=== PATIENT | female | born 1945 | race American Indian/Alaskan Native ===

== ENCOUNTER 2017-02-06 07:25 | Outpatient (CLI) | payer MEDICARE ==
--- NOTE | 2017-02-06 08:42 | Mammography Report ---
BILATERAL MAMMOGRAM: FINDINGS: The breasts are almost entirely fat (<25% glandular). No mass, distortion, suspicious calcification, or skin change is seen. There is no significant change when compared to our prior examination in December 2015. CAD was utilized. IMPRESSION: Negative mammogram. There is no mammographic evidence of malignancy. RECOMMENDATION: Follow-up per ACS guidelines. BI-RADS CATEGORY: 1 = Negative ACR BI-RADS MAMMOGRAPHIC CODES: 0 = Needs additional imaging evaluation; 1 = Negative; 2 = Benign; 3 = Probably benign; 4 = Suspicious; 5 = Malignant; 6 = Known biopsy-proven malignancy COMMENT: 1. Dense breast tissue, i.e., adenosis, fibrocystic changes, etc., may obscure an underlying neoplasm. 2. Approximately 10% of cancers are not detected with mammography. 3. A negative mammography report should not delay biopsy if a clinically suspicious mass is present. COMMENT: Patient follow-up letters are generated in [employer].
== END 2017-02-06 07:26 | disposition home or self-care (01) ==
LOC: MAMMO 07:25
DX: Z12.31 Encounter for screening mammogram for malignant neoplasm of breast (principal)
CPT/HCPCS: 77067; G0202

== ENCOUNTER 2018-06-16 08:18 | Outpatient (CLI) | payer MEDICARE ==
--- NOTE | 2018-06-16 15:33 | Mammography Report ---
BILATERAL DIGITAL SCREENING MAMMOGRAM with CAD: 06/16/18 08:18:00 CLINICAL: Routine screening. COMPARISON:02/06/17 FINDINGS: The breasts are almost entirely fatty. No mass, architectural distortion or suspicious calcifications. IMPRESSION: No mammographic evidence of malignancy. BI-RADS CATEGORY: 2 -- Benign RECOMMENDATION: Routine mammographic screening in one year. COMMENT: Patient follow-up letters are generated by our [employer] application.
== END 2018-06-16 08:19 | disposition home or self-care (01) ==
LOC: MAMMO 08:18
DX: Z12.31 Encounter for screening mammogram for malignant neoplasm of breast (principal)
CPT/HCPCS: 77067

== ENCOUNTER 2018-11-27 15:00 | Emergency (ER) | payer MEDICARE ==
--- NOTE | 2018-11-27 15:23 | Event Note ---
ED Screening Note Date of service: 11/27/18 Time: 15:18 ED Screening Note: 73 yo female presents with blood in urine x 5 days states she fell and hurt her back from a fall last week This initial assessment/diagnostic orders/clinical plan/treatment(s) is/are subject to change based on patients health status, clinical progression and re- assessment by fellow clinical providers in the ED. Further treatment and workup at subsequent clinical providers discretion. Patient/guardian urged not to elope from the ED as their condition may be serious if not clinically assessed and managed. Initial orders include: ua, cbc,
[2018-11-27 16:01] LABS: Basophils # (Auto) 0.1 K/mm3 (0.0-0.1); Basophils % (Auto) 1.2 % (0.0-1.8); Eosinophils # (Auto) 0.2 K/mm3 (0.0-0.4); Eosinophils % (Auto) 4.4 % (0.0-4.3); Hemoglobin 13.8 gm/dl (10.1-14.3); Lymphocytes # (Auto) 1.7 K/mm3 (1.2-5.4); Lymphocytes % (Auto) 31.9 % (13.4-35.0); Mean Corpuscular HGB Conc 33 % (30-34); Mean Corpuscular Volume 89 fl (79-97); Monocytes # (Auto) 0.4 K/mm3 (0.0-0.8); Monocytes % (Auto) 6.6 % (0.0-7.3); Platelet Count 201 K/mm3 (140-440); Red Blood Count 4.72 M/mm3 (3.65-5.03); Red Cell Distribution Width 14.3 % (13.2-15.2)
[2018-11-27 16:23] LABS: Alanine Aminotransferase 14 units/L (7-56); BUN/Creatinine Ratio 20; Blood Urea Nitrogen 14 mg/dL (7-17); Calcium 9.3 mg/dL (8.4-10.2); Hemolysis Index 10
[2018-11-27] MEDS ORDERED: NACL 0.9% 1000 ML 1,000 ML IV ONE (16:53)
[2018-11-27] MEDS ORDERED: ZOFRAN IV ONE (16:53)
[2018-11-27] MEDS ORDERED: MORPHINE IV ONE (16:53)
[2018-11-27 18:06] LABS: Bilirubin,Urine NEG (Negative); Blood,Urine NEG (Negative); Calcium Oxalate Crystals,Urine 1+; Color,Urine Yellow (Yellow); Mucus,Urine FEW /HPF; Protein,Urine <15 mg/dL mg/dL (Negative); Urobilinogen,Urine < 2.0 mg/dL (<2.0); WBC,Urine < 1.0 /HPF (0.0-6.0)
--- NOTE | 2018-11-27 18:32 | Cat Scan Report ---
CT ABDOMEN AND PELVIS WITH IV CONTRAST, 11/27/2018 INDICATION: Right flank pain and hematuria. TECHNIQUE: Following the administration of intravenous contrast, multiple axial CT images of the abdo men and pelvis were acquired. Sagittal and coronal reformats were obtained. All CT performed at this facility utilize dose reduction techniques including automated exposure control, iterative reconstru ction and weight based dosing when appropriate to reduce patient radiation dose to as low as reasonab ly achievable. . COMPARISON: No prior studies are available for comparison. FINDINGS: Limited imaging of the bilateral lung bases demonstrate no evidence of acute abnormality. Abdomen: There is a 1.5 cm cyst within the right lobe of the liver. The gallbladder,, spleen, pancrea s, bilateral adrenal glands and bilateral kidneys show no definitive evidence of acute abnormality. T here is no hydronephrosis or hydroureter. There is no evidence of bowel obstruction or free air. The appendix is not definitely identified. Pelvis: There is a complex cyst or cystic mass associated with the left adnexa, which measures approx imately 6.4 x 5.4 x 4.3 cm. This contains a few thin internal enhancing septations. There is no free fluid. The uterus appears within normal limits. The urinary bladder appears grossly normal. Evaluation of bony structures demonstrates no evidence of acute bony abnormality. Evaluation of soft tissue structures demonstrates no evidence of acute soft tissue abnormality. IMPRESSION: 1. No CT evidence of acute inflammatory process within the abdomen or pelvis. 2. Complex cyst or cystic mass within the left pelvis as described. A cystic ovarian neoplasm could h ave this appearance. Gynecological follow-up/consultation is recommended. 3. Small hepatic cyst. Signer Name: Beth Hodge MD Signed: 11/27/2018 6:28 PM Workstation Name: [id number]
[2018-11-27 20:28] VITALS: BP 152/83
--- NOTE | 2018-11-27 20:30 | Emergency Department Report ---
ED Female HPI - General Chief complaint: Urogenital-Female Stated complaint: BACK PAIN Time Seen by Provider: 11/27/18 15:18 Source: patient Mode of arrival: Ambulatory Limitations: No Limitations - History of Present Illness Initial comments: 73-year-old -[place] female patient who presented to ER after falling last week and injured her lower back. Pt. states she is now noticing blood in urine, c/o right flank pain 5/10, without radiation. no fever, chills or nights sweats. - Related Data Home Medications Medication Instructions Recorded Confirmed Last Taken Cyanocobalamin (Vitamin B-12) 1 tab PO DAILY 05/26/14 05/26/14 Unknown [B-12] Mv,Myron,Min/Iron/Folic Acid/Lut 1 tab PO DAILY 05/26/14 05/26/14 Unknown [Complete Multi Tablet] Previous Rx's Medication Instructions Recorded Last Taken Type Cyclobenzaprine [Flexeril] 10 mg PO TID PRN #15 tablet 11/27/18 Unknown Rx Allergies Allergy/AdvReac Type Severity Reaction Status Date / Time No Known Allergies Allergy Verified 05/26/14 12:39 ED Review of Systems ROS: Stated complaint: BACK PAIN Other details as noted in HPI Comment: All other systems reviewed and negative Eyes: denies: eye pain ENT: denies: ear pain Cardiovascular: denies: dyspnea on exertion Endocrine: denies: flushing Gastrointestinal: denies: nausea, vomiting Genitourinary: denies: urgency, dysuria Musculoskeletal: back pain ED Past Medical Hx - Past Medical History Previous Medical History?: No Hx Asthma: No Hx COPD: No Hx Tuberculosis: No Hx HIV: No - Surgical History Past Surgical History?: No - Social History Smoking Status: Never Smoker - Medications Home Medications: Home Medications Medication Instructions Recorded Confirmed Last Taken Type Cyanocobalamin (Vitamin B-12) 1 tab PO DAILY 05/26/14 05/26/14 Unknown History [B-12] Mv,Myron,Min/Iron/Folic Acid/Lut 1 tab PO DAILY 05/26/14 05/26/14 Unknown History [Complete Multi Tablet] Cyclobenzaprine [Flexeril] 10 mg PO TID PRN #15 tablet 11/27/18 Unknown Rx ED Physical Exam - General Limitations: No Limitations General appearance: alert, in no apparent distress - Head Head exam: Present: atraumatic, normocephalic - Eye Eye exam: Present: normal appearance, PERRL, EOMI Pupils: Present: normal accommodation - ENT ENT exam: Present: normal exam, normal orophraynx - Neck Neck exam: Present: normal inspection - Respiratory Respiratory exam: Present: normal lung sounds bilaterally - Cardiovascular Cardiovascular Exam: Present: regular rate, normal rhythm - GI/Abdominal GI/Abdominal exam: Present: soft - Extremities Exam Extremities exam: Present: normal inspection - Back Exam Back exam: Present: CVA tenderness (R) - Neurological Exam Neurological exam: Present: alert, oriented X3, CN II-XII intact ED Course Vital Signs 11/27/18 11/27/18 11/27/18 15:19 16:12 20:24 Temperature 98.3 F 98.4 F Pulse Rate 84 76 64 Respiratory 18 20 16 Rate Blood Pressure 192/98 Blood Pressure 137/75 152/83 [Left] O2 Sat by Pulse 95 96 97 Oximetry ED Medical Decision Making - Lab Data Result diagrams: 11/27/18 15:44 11/27/18 15:44 - Medical Decision Making Patient is not heard and on the left side, the distal left cystic mass in the pelvis is an incidental finding, however it is concerning. I discussed the patient the differential diagnoses, including neoplasm. Follow-up on Thursday with her [employer], and work this up further. She voiced understanding to return to ED if symptoms worsen, should develop fever, chills, weakness, vaginal bleeding that is severe. Also follow-up with urology for hematuria. Her H&H is stable at the moment. Critical care attestation.: If time is entered above; I have spent that time in minutes in the direct care of this critically ill patient, excluding procedure time. ED Disposition Clinical Impression: Pelvic mass in female, Gross hematuria, Right flank pain Disposition: TO HOME OR SELFCARE Is pt being admited?: No Does the pt Need Aspirin: No Condition: Stable Prescriptions: Cyclobenzaprine [Flexeril] 10 mg PO TID PRN #15 tablet PRN Reason: Muscle Spasm [facility] [Primary Care Provider] - 3-5 Days REYNA NEGRETE MD [Staff Physician] - 3-5 Days
== END 2018-11-27 20:37 | disposition home or self-care (01) ==
LOC: ED 15:00
DX: R19.00 Intra-abdominal and pelvic swelling, mass and lump, unspecified site (principal); R31.0 Gross hematuria
CPT/HCPCS: 36415; 74177; 80053; 81001; 85025; 96374; 96375; 99284; J2270; J2405; J7030; Q9967; 96361